=== PATIENT | male | born 1975 | race Caucasian/White ===

== ENCOUNTER 2018-04-08 13:02 | Outpatient (CLI) | payer OTHER ==
--- NOTE | 2018-04-08 15:23 | Ultrasound Report ---
Procedure Date: 04/08/2018 Accession Number: [id number] / [id number] Procedure: US - Testicle w/Doppler CPT Code: FULL RESULT: EXAM: Testicle w/Doppler DATE: 04/08/2018 2:18 PM CLINICAL HISTORY: R TESTICLE RETRACTION X 3 MONTHS COMPARISON: None. TECHNIQUE: Real-time scanning was performed with static images obtained, including color-flow. FINDINGS: Right: Testis: 4.7 x 3.1 x 2.1 cm. Normal size and echotexture. No mass, calcification, or abnormal blood flow. Epididymis: 1.4 x 0.9 x 0.7 cm. Normal size and echotexture. Incidental 2 mm cyst. Hydrocele: None. Varicocele: None. Left: Testis: 4.3 x 3.1 x 2.4 cm. Normal size and echotexture. No mass, calcification, or abnormal blood flow. Epididymis: 1.2 x 0.8 x 0.6 cm. Normal size and echotexture. Incidental 4 mm cyst. Hydrocele: None. Varicocele: None. IMPRESSION: Normal scrotal ultrasound. [facility]
== END 2018-04-08 13:03 | disposition home or self-care (01) ==
LOC: DI 13:02
PROVIDERS: ATTEND Nurse Practitioner Family
DX: N50.89 Other specified disorders of the male genital organs (principal)
CPT/HCPCS: 76870; 93975

== ENCOUNTER 2021-03-14 08:00 | Outpatient (CLI) | payer OTHER ==
--- NOTE | 2021-03-14 11:58 | XRAY Report ---
PROCEDURE: Finger(s) RT INDICATIONS: DISLOCATION OF 1ST MCP TECHNIQUE: AP hand, 2 views of the first finger(s) acquired. COMPARISON: 02/28/2021 plain film FINDINGS: Bones: No fracture. There is mild subluxation at the first metacarpal phalangeal joint.. No suspici ous bony lesions. Soft tissues: No suspicious soft tissue calcifications. IMPRESSION: No change in mild subluxation at the first metacarpal phalangeal joint, possibly indicating ligamento us injury. This could be further assessed with MRI, if clinically indicated. Reviewed by: Muriel Yoo MD on 03/14/2021 11:57 AM PDT Approved by: Muriel Yoo MD on 03/14/2021 11:57 AM PDT Station ID: [id number]
== END 2021-03-14 23:59 | disposition home or self-care (01) ==
LOC: DI.N 08:00
PROVIDERS: ATTEND Orthopaedic Surgery
DX: S63.114A Dislocation of metacarpophalangeal joint of right thumb, initial encounter (principal)

== ENCOUNTER 2023-11-29 08:26 | Outpatient (CLI) | payer OTHER ==
--- NOTE | 2023-11-29 16:05 | XRAY Report ---
PROCEDURE: Knee 3V LT INDICATIONS: LEFT KNEE PAIN TECHNIQUE: 3 views of the knee(s) were acquired. COMPARISON: None. FINDINGS: Bones: No fractures or dislocations. No suspicious bony lesions. Soft tissues: No knee joint effusion. No suspicious soft tissue calcifications or masses. IMPRESSION: No acute bony abnormality. If there remains a high clinical concern for fracture, consider cross-sect ional imaging now. If pain persists, consider repeat x-ray in 10-14 days or cross-sectional imaging. Reviewed by: Marisol Shoemaker MD on 11/29/2023 4:03 PM PST Approved by: Marisol Shoemaker MD on 11/29/2023 4:03 PM PST Station ID: [id number]
== END 2023-11-29 08:27 | disposition home or self-care (01) ==
LOC: DI.S 08:26
PROVIDERS: ATTEND Registered Nurse
DX: M25.562 Pain in left knee (principal)